=== PATIENT | female | born 2000 | race African-American/Black ===

== ENCOUNTER 2021-08-12 08:44 | Outpatient (CLI) | payer OTHER | END 2021-08-12 08:45 | disposition home or self-care (01) | LOC: BICULT 08:44 | PROVIDERS: ATTEND Family Medicine | DX: Z34.82 Encounter for supervision of other normal pregnancy, second trimester (principal); Z3A.21 21 weeks gestation of pregnancy | CPT/HCPCS: 76805 ==

== ENCOUNTER 2025-02-03 00:07 | Emergency (ER) | payer OTHER | END 2025-02-03 02:22 | disposition home or self-care (01) | LOC: ERS 00:07 | DX: F41.0 Panic disorder [episodic paroxysmal anxiety] (principal) | CPT/HCPCS: 93005; 99283 ==